=== PATIENT | female | born 1935 ===

== ENCOUNTER 2018-11-09 08:00 | Inpatient (IN) | payer OTHER ==
[~2018-11-09] VITALS: Ht 165.1 cm; Wt 61.2 kg
[2018-11-09] MEDS ORDERED: TOPROL XL50 M1 (11:47)
[2018-11-09] MEDS ORDERED: ALTACE10 MG (11:47)
[2018-11-09] MEDS ORDERED: ANASTROZOLE1 MG (11:48)
[2018-11-09] MEDS ORDERED: LATANOPROST2.5 ML OTIC (11:49)
[2018-11-09] MEDS ORDERED: PLAVIX75 MG (11:50)
[2018-11-09] MEDS ORDERED: SYNTHROID112 MCG (11:51)
== END 2018-11-16 11:57 | disposition home or self-care (01) | DRG 581 ==
LOC: SURG-SUITE 11-13 03:15 → SURH 11-13 05:40 → O/R 11-13 05:40 → SURG-SUITE 11-13 08:00 → SURH 11-13 16:20
PROVIDERS: ADMIT Surgery
PROC: 07B60ZZ Excision of Left Axillary Lymphatic, Open Approach (ICD-10-PCS; 2018-11-13)
PROC: C71L1ZZ Planar Nuclear Medicine Imaging of Upper Chest Lymphatics using Technetium 99m (Tc-99m) (ICD-10-PCS; 2018-11-13)
PROC: 0T9B70Z Drainage of Bladder with Drainage Device, Via Natural or Artificial Opening (ICD-10-PCS; 2018-11-13)
PROC: 0HBV0ZZ Excision of Bilateral Breast, Open Approach (ICD-10-PCS; principal; 2018-11-13 03:15)
DX: D05.12 Intraductal carcinoma in situ of left breast (principal); D24.1 Benign neoplasm of right breast; N60.31 Fibrosclerosis of right breast; I10 Essential (primary) hypertension; E03.8 Other specified hypothyroidism